=== PATIENT | female | born 2000 | race Caucasian/White ===

== ENCOUNTER 2020-04-28 00:53 | Emergency (ER) | payer MEDICAID ==
[~2020-04-28] VITALS: Ht 162.6 cm; Wt 89.0 kg
[2020-04-28 01:45] VITALS: BP 120/74
[2020-04-28] MEDS ORDERED: IBUPROFEN 600MG TABLET PO ONE (01:45)
== END 2020-04-28 01:46 | disposition home or self-care (01) ==
LOC: ER 00:53
DX: R20.0 Anesthesia of skin (principal); F12.90 Cannabis use, unspecified, uncomplicated; R03.0 Elevated blood-pressure reading, without diagnosis of hypertension
CPT/HCPCS: 99282